=== PATIENT | male | born 1955 | race Caucasian/White ===

== ENCOUNTER → 2019-05-20 | Outpatient (CLI) | payer OTHER ==
[2015-04-04 10:57] VITALS: BP 124/78
[~2019-05-20] MED LIST: ASA/500T PO; ASPI-482 PO; ESOM10SU PO; ESOM40CA PO; LISI-338 PO; MIRA25TA PO; NAPR220C4 PO; OMEG1CAP6 PO; OMEG500C3 PO; POLY17PO29 PO; RANI300T PO; VIT1TABL2 PO
--- NOTE | 2019-05-20 11:47 | KCIC ---
LUMBAR SPINE WO CONTRAST Date: 05/20/2019 8:45 AM Indication: Chronic low back pain, right hip pain Comparison: None. Technique: Multi-planar multi-weighted magnetic resonance imaging of the lumbar spine was performed without intravenous contrast using the standard lumbar spine protocol. FINDINGS: Mild S-shaped lumbar curvature. No acute fracture. Advanced multilevel degenerative disc desiccation and disc height loss. Degenerative endplate edema at L5-S1. Scattered vertebral body hemangiomas. The conus terminates at a normal level. No abnormal signal is seen within the visualized distal spinal cord. Mild redundancy of the nerve roots of the cauda equina. No soft tissue abnormality in the visualized abdomen or pelvis. T12-L1: No disc bulge. No facet arthropathy. No significant spinal stenosis or neural foraminal narrowing. L1-L2: Disc bulge with annular tear. Mild facet arthropathy. Mild spinal stenosis and left lateral recess narrowing. Mild bilateral neural foraminal narrowing. L2-L3: Disc bulge with left far lateral protrusion. Moderate facet arthropathy. Ligamentum flavum thickening. Moderate spinal stenosis. Mild right and moderate to severe left lateral recess narrowing. Mild right and moderate to severe left neural foraminal narrowing. L3-L4: Disc bulge with right far lateral protrusion. Moderate to severe facet arthropathy. Ligamentum flavum thickening. Moderate to severe spinal stenosis. Severe right and moderate left lateral recess narrowing. Moderate to severe bilateral neural foraminal narrowing. L4-L5: Disc bulge with annular tear and right far lateral protrusion. Severe right and moderate left facet arthropathy. Ligament flavum thickening. Severe spinal stenosis and lateral recess narrowing. Severe right and moderate left neural foraminal narrowing. L5-S1: Disc bulge. Moderate facet arthropathy. No spinal stenosis. Mild lateral recess narrowing. Severe bilateral neural foraminal narrowing. IMPRESSION: Severe spinal stenosis at L4-5. Advanced degenerative changes at the remaining levels as detailed above. Electronically signed by: Manan Kee MD (05/20/2019 11:44 AM) [facility]
== END | disposition home or self-care (01) ==
LOC: KCIC MRI 08:26
PROVIDERS: ATTEND Orthopaedic Surgery
DX: M48.07 Spinal stenosis, lumbosacral region (principal); M51.36 Other intervertebral disc degeneration, lumbar region; M46.07 Spinal enthesopathy, lumbosacral region; M51.27 Other intervertebral disc displacement, lumbosacral region; M47.816 Spondylosis without myelopathy or radiculopathy, lumbar region; M41.86 Other forms of scoliosis, lumbar region; G89.29 Other chronic pain
CPT/HCPCS: 72148

== ENCOUNTER → 2019-08-06 | Outpatient (CLI) | payer MEDICARE ==
[2015-04-04 10:57] VITALS: BP 124/78
[~2019-08-06] MED LIST changes: +LISI10TA2 PO; +OMEG1CAP27 PO; +PRAV10TA2 PO
--- NOTE | 2019-08-06 09:46 | PAIN ---
DATE OF SERVICE: 08/06/2019 INITIAL CONSULTATION FOR PAIN CLINIC CHIEF COMPLAINT: Low back and right lower extremity pain. HISTORY OF PRESENT ILLNESS: This is a 64-year-old male, who presents with history of pain in the low back, right lower extremity for about 2 years. The patient reports it has been on and off over many years, but over the past 2 years, it has becoming more noticeable, and the patient thought it was his hip that was the main problem on his right side. He has seen orthopedic surgeon with full workup without any specific findings to explain the pain in his hip; however, MRI scan was done of the lumbar spine showing significant stenosis, especially at L4-L5 level with severe spinal stenosis and advanced degenerative changes at the L2-L3, L3-L4 and L4-L5 as well as some mild change in L5-S1. The patient shows right lateral protrusion at L3-L4 with [id number] facet arthropathy, mnadcpdp-uv-vnsbbm spinal stenosis as well at L2-L3 with the left lateral protrusion, L4-L5, showing severe right and moderate left facet arthropathy, severe spinal stenosis and lateral recess narrowing at L4-L5 with severe right and moderate left neural foraminal narrowing as well. The patient reports the pain is worse with walking, standing and changing positions, better with sitting or lying down, but does awaken him from sleep at night at least once or twice. The patient reports it does not affect his bowel or bladder control and does not affect his ability to walk significantly, but he has significant fatigue in the right leg with ambulation. The patient reports his disability rating from 0-10, 10 being the worst, is a 5 in all categories, family home responsibilities, social activity, recreation, occupation and sexual behavior, life support activities and self-care activities. The patient reports he has had some physical therapy in the past and has been doing some exercises with this as well, mainly stretching and strengthening exercises, also trying to walk daily and did have some trigger points in the past as well, which was helpful, as well as therapy, although not as helpful, currently with the stretching and strengthening exercises that he has been doing on his own. PAST MEDICAL HISTORY: Significant for hypertension, arthritis, left knee surgery in 1999 secondary to infection. CURRENT MEDICATIONS: Include lisinopril, fish oil, pravastatin, Tylenol and ibuprofen [id number], each of which does decrease the pain mildly, but only mildly. ALLERGIES: The patient has no known drug allergies. FAMILY HISTORY: Significant for no major medical problems or conditions that the patient is aware of. SOCIAL HISTORY: The patient does not drink alcohol, does not smoke and does not use any illegal, illicit or recreational drugs. He is , lives with his spouse, lives locally in [place], [place], and is retired by about 4 years ago from [employer]. REVIEW OF SYSTEMS: The patient's review of systems is positive for those items mentioned in the history of present illness. All systems reviewed and otherwise negative. It is complete, full and well documented on the patient's chart. PHYSICAL EXAMINATION: VITAL SIGNS: The patient's blood pressure is 131/81, pulse is 59, respirations 18, temperature is 98.2 degrees Fahrenheit. Height is 5 feet 9 inches and weight is 205 pounds. GENERAL: The patient is awake, alert, oriented, appropriate, very pleasant demeanor. HEENT: Head shows normocephalic, atraumatic. Extraocular movements are intact and symmetrical. Oral cavity: Mucous membranes moist and pink; dentition is intact. NECK: Shows anterior throat supple without palpable lymphadenopathy noted. Swallow reflex symmetrical. CHEST: Shows normal on inspection. Breath sounds are clear to auscultation bilaterally. HEART: Shows S1, S2 clear. No murmurs auscultated. ABDOMEN: Soft, nontender and nondistended. No palpable organomegaly is noted. No rebound or guarding demonstrated. BACK: Shows spine grossly in the midline. Normal-appearing thoracic kyphosis and minor flattening of lumbar lordotic curvature. Lumbar paraspinous muscle shows symmetrical on inspection, with palpation shows some moderate tenderness diffusely bilaterally, only diffusely without significant radiation. The patient shows good rotational motion of lumbar spine, both laterally as well as extension and flexion without difficulty. No tenderness over the spinous processes, sacrum or sacroiliac regions. EXTREMITIES: The patient's lower extremities show deep tendon reflexes at 1+ in the patellar and tendo-calcaneus tendons are equal. Motor exam is strong with 5/5 dorsiflexion on the left and 4/5 on the right as well as quadriceps and hamstring flexion 4/5 right and 5/5 left as well. Peripheral pulses are 1+ posterior tibial. No peripheral edema is noted bilaterally. The patient's straight leg raising noted to be mildly positive on the right at about 35-40 degrees with pain in the lateral thigh and posterior thigh, decreased with knee flexion, left side is negative. Gaenslen's and Jamison's maneuvers are grossly negative bilaterally as well. The patient is able to stand, stand on the toes without difficulty or loss of balance, walks with a slight shuffling gait, appears to favor the right lower extremity mildly, but is not using any assistive device such as canes or walkers to ambulate. SKIN: Shows warm and dry, good turgor. No edema. No sores, rashes or bruising throughout. IMPRESSION: 1. This is a 64-year-old male with long history of low back and right lower extremity pain in a radicular fashion, worse over the past few months following an L4-L5 dermatomal distribution on the right. 2. MRI scan of lumbar spine as noted. 3. Arthritis. 4. Hypertension. PLAN: Options were discussed with the patient including conservative medical managements, physical therapies and interventional techniques. He would like to pursue interventional techniques. We discussed the lumbar epidural steroid injection using description as well as anatomical models to describe the procedure. The patient will wait for preauthorization with his insurance provider. In the meantime, he will continue doing stretching and strengthening exercises on his own, maintain oral anti-inflammatories. As the patient had a Medrol steroid pack from his orthopedic surgeon recently, we will not repeat this currently, but he reported it did help significantly while he was taking it. We will have the patient return after preauthorization for a translaminar L4-L5 level lumbar epidural steroid injection. The patient will continue with stretching and strength exercises and walking as tolerated in the meantime. MARTHA CARVAJAL MD DR: MARLA/argelia JOB#: [id number] / [id number] GÉNESIS Cooney MD
== END ==
LOC: PNCL 07:58
PROVIDERS: ATTEND Anesthesiology
DX: M54.5 Low back pain (principal); M79.661 Pain in right lower leg; I10 Essential (primary) hypertension; Z87.39 Personal history of other diseases of the musculoskeletal system and connective tissue; Z98.890 Other specified postprocedural states
CPT/HCPCS: G0463

== ENCOUNTER → 2019-08-17 | Outpatient (CLI) | payer MEDICARE ==
[2015-04-04 10:57] VITALS: BP 124/78
[~2019-08-17] MED LIST changes: +IOHEXOL 180 MG/ML 10 ML VIAL. ONE; +methylPREDNISolone ACETATE 40 MG/ML VIAL. ONE; +methylPREDNISolone ACETATE 80 MG/ML VIAL. ONE
--- NOTE | 2019-08-17 12:14 | PAIN ---
DATE OF SERVICE: 08/17/2019 PROGRESS NOTE FOR PAIN CLINIC DIAGNOSES: Lumbar radiculopathy with lumbar degenerative disk disease, lumbar spinal stenosis. HISTORY OF PRESENT ILLNESS: The patient is a 64-year-old male who returns for followup status post initial evaluation and preauthorization for lumbar epidural steroid injection. The patient obtained that now and would like to proceed. The patient reports still pain in the low back, right lower extremity as it was, mostly in the posterior gluteus, lateral thigh, anterior thigh on the right, but also some on the left. The patient reports it is a 5 on a scale of 10 at all times over the past week, worst, least and average and is a 5 today. The patient reports it is aching and dull, tingling in the low back and the right greater than left lower extremity. The patient reports it is better with sitting or lying down, worse with walking, standing, changing positions, does not awaken him from sleep. The patient reports no new motor or sensory deficits, no new bowel or bladder incontinence or other complaints. PHYSICAL EXAMINATION: VITAL SIGNS: The patient's blood pressure 144/97, pulse 63, respirations 18, temperature 98.1 degrees Fahrenheit, height is 5 feet 7 inches, weight is 205 pounds. GENERAL: The patient is awake, alert, oriented, appropriate, very pleasant demeanor. HEENT: Shows normocephalic, atraumatic. Extraocular movements are intact and symmetrical. Oral cavity: Mucous membranes moist and pink. Dentition is intact. NECK: Shows anterior throat supple without palpable lymphadenopathy noted. Swallow reflex symmetrical. CHEST: Shows normal on inspection. Breath sounds are clear bilaterally. HEART: Shows S1, S2 clear. No murmurs auscultated. ABDOMEN: Soft, nontender, nondistended. BACK: Shows spine grossly in the midline, slight exaggerated thoracic kyphosis and minor flattening of lumbar lordotic curvature. Lumbar paraspinous muscle shows symmetrical on inspection, with palpation shows some moderate tenderness diffusely bilaterally going diffusely without significant radiation. EXTREMITIES: The patient's lower extremities show deep tendon reflexes at 1+ patellar and tendo calcaneus tendons. Motor exam is approximately 4 on a scale of 5 on the right with dorsiflexion and extension, 5/5 on the left. Peripheral pulses are 1+ posterior tibia. No peripheral edema is noted. Options were discussed with the patient. The patient's old chart was reviewed as his current medication regimen updated. Current review of systems updated today as well. We will proceed with a lumbar epidural steroid injection today with fluoroscopic guidance. Risks were again discussed including, but not limited to bleeding, infection, possibility of epidural hematoma, subsequent neurological compromise, dural puncture, headaches, spinal cord and/or nerve damage, side effects of steroid medication and poor results regarding pain control. The patient understands and wished to proceed. The patient will return to clinic in approximately 2 weeks for followup. He was counseled as to return appointment, activity level and side effects to be aware of. DIAGNOSES: Lumbar radiculopathy with lumbar degenerative disk disease, lumbar spinal stenosis. PROCEDURE: Lumbar epidural steroid injection, translaminar approach at L5-S1 level using C-arm fluoroscopic guidance under sterile prep and drape using local anesthetic. MEDICATION INJECTED: A total of 120 mg Depo-Medrol plus 10 mL of preservative normal saline and 2 mL of contrast. CONDITION AT DISCHARGE: Stable. The patient tolerated the procedure well, had no complications. MARTHA CARVAJAL MD DR: MARLA/argelia JOB#: [id number] / [id number]
== END ==
LOC: PNCL 10:23
PROVIDERS: ATTEND Anesthesiology
DX: M51.16 Intervertebral disc disorders with radiculopathy, lumbar region (principal); M48.061 Spinal stenosis, lumbar region without neurogenic claudication
CPT/HCPCS: 62323; J1030; J1040; Q9965

== ENCOUNTER → 2019-08-31 | Outpatient (CLI) | payer MEDICARE ==
[2015-04-04 10:57] VITALS: BP 124/78
[~2019-08-31] MED LIST changes: -IOHEXOL 180 MG/ML 10 ML VIAL. ONE; -methylPREDNISolone ACETATE 40 MG/ML VIAL. ONE; -methylPREDNISolone ACETATE 80 MG/ML VIAL. ONE
--- NOTE | 2019-08-31 10:00 | PAIN ---
DATE OF SERVICE: 08/31/2019 PROGRESS NOTE FOR PAIN CLINIC DIAGNOSES: Lumbar radiculopathy with lumbar degenerative disk disease and lumbar spinal stenosis. HISTORY OF PRESENT ILLNESS: The patient is a 64-year-old male who returns for followup status post lumbar epidural steroid injection x 1. The patient reports about 90% improvement in his low back and right lower extremity. The patient reports doing much better with distance walking, doing work activities, household activities, taking care of his property and home. The patient reports his pain is a 1 on a scale of 10 at its worst, average and least is a 1 today. The patient reports it is aching, sharp, much worse in the morning, but once he gets up and around, he does quite a bit better, still radiating to the right lower extremity, posterior gluteus, posterior thigh, posterior calf, but only very infrequently and the patient reports that over time, it is beginning to return very slightly. He is noticing that it is following the radicular pattern once again. The patient reports it is better at night, not awaken him from sleep at night. No new motor or sensory deficits, no new bowel or bladder incontinence. Describes an aching pain in the low back and right leg. PHYSICAL EXAMINATION: VITAL SIGNS: The patient's blood pressure is 132/77, pulse 62, respirations 18, temperature 98.1 degrees Fahrenheit, height is 5 feet 9 inches, and weight is 199 pounds. GENERAL: The patient is awake, alert, oriented, appropriate, very pleasant demeanor. HEENT: Head shows normocephalic, atraumatic. Extraocular movements are intact and symmetrical. Oral Cavity: Mucous membranes moist and pink. Dentition is intact. NECK: Shows anterior throat is supple without palpable lymphadenopathy noted. Swallow reflex symmetrical. CHEST: Shows normal on inspection. Breath sounds clear to auscultation bilaterally. HEART: Shows S1, S2 clear. No murmurs auscultated. ABDOMEN: Soft, nontender, nondistended. No palpable organomegaly is noted. No rebound or guarding demonstrated. BACK: Shows spine grossly in the midline. Normal-appearing thoracic kyphosis and lumbar lordotic curvature slightly flattened. Lumbar paraspinous muscle shows symmetrical on inspection, on palpation shows some moderate tenderness diffusely bilaterally, but only diffusely without significant radiation. The patient has good rotational motion of lumbar spine, both laterally as well as extension and flexion without significant difficulty or pain reported. EXTREMITIES: The patient's lower extremities show deep tendon reflexes at 1+ in the patellar and tendo calcaneus tendons. Motor exam is approximately 4 on a scale of 5 on the right and 5/5 on the left. Peripheral pulses are 1+ posterior tibia. No peripheral edema is noted. The patient does have a very mild straight leg raise which is positive on the right side at about 45 degrees, but decreased completely with knee flexion. Left side is negative. Gaenslen's and Jamison maneuvers are negative bilaterally. Options were discussed with the patient. The patient's old chart was reviewed as his current medication regimen updated. Current review of systems updated today as well. We will proceed with a preauthorization for a second lumbar epidural steroid injection. The patient is doing much better after the first pain returning now in a radicular pattern at L5-S1 dermatomal distribution on the right, but again it got 90% better after the first injection. The patient will continue with stretching and strengthening exercises, activity as tolerated, walking daily and taking care of his property, which is very physical by his report. We will wait for preauthorization and have the patient return for a second lumbar epidural steroid injection at L5-S1 level, translaminar approach at that time. MARTHA CARVAJAL MD DR: MARLA/argelia JOB#: [id number] / [id number]
== END ==
LOC: PNCL 08:28
PROVIDERS: ATTEND Anesthesiology
DX: M51.16 Intervertebral disc disorders with radiculopathy, lumbar region (principal); M48.061 Spinal stenosis, lumbar region without neurogenic claudication
CPT/HCPCS: G0463

== ENCOUNTER → 2019-10-21 | Outpatient (CLI) | payer MEDICARE ==
[2015-04-04 10:57] VITALS: BP 124/78
[~2019-10-21] MED LIST changes: +IOHEXOL 180 MG/ML 10 ML VIAL. ONE; +methylPREDNISolone ACETATE 40 MG/ML VIAL. ONE; +methylPREDNISolone ACETATE 80 MG/ML VIAL. ONE
--- NOTE | 2019-10-21 10:02 | PAIN ---
DATE OF SERVICE: 10/21/2019 PROGRESS NOTE FOR PAIN CLINIC DIAGNOSES: Lumbar radiculopathy with lumbar degenerative disk disease, lumbar spinal stenosis. HISTORY OF PRESENT ILLNESS: The patient is a 64-year-old male who returns for followup status post lumbar epidural steroid injection x 1. The patient reports about 90% improvement for several weeks after the injection. The patient reports the pain is returning now just over the past couple of days in the low back and right lower extremity, posterior gluteus, posterior thigh, posterior calf into the foot, again he was increasing his activity with greater distance walking, doing work activities, household activities with much greater ease and comfort. The patient reports he is sleeping much better at night, has been beginning to awaken him from sleep about once at night now in the past few days. The patient reports otherwise doing very well. Describes the pain in his low back is sharp and aching, shooting in the right lower extremity with some tingling sensation in the leg and foot as well. The patient reports his pain is 7 on a scale of 10 at its worst over the past week, 6 on average, 2 at its least and is a 6 today. The patient reports no new motor or sensory deficits, no new bowel or bladder incontinence or other complaints. PHYSICAL EXAMINATION: VITAL SIGNS: The patient's blood pressure 124/89, pulse 63, respirations 16, temperature 98.4 degrees Fahrenheit, height is 5 feet 9 inches, weight is 198 pounds. GENERAL: The patient is awake, alert, oriented, appropriate, very pleasant demeanor. HEENT: Head shows normocephalic, atraumatic. Extraocular movements are intact and symmetrical. Oral cavity: Mucous membranes moist and pink. Dentition is intact. NECK: Shows anterior throat supple without palpable lymphadenopathy noted. Swallow reflex symmetrical. CHEST: Shows normal on inspection. Breath sounds are clear bilaterally. HEART: Shows S1, S2 clear. No murmurs auscultated. ABDOMEN: Soft, nontender, nondistended. No palpable organomegaly is noted. No rebound or guarding demonstrated. BACK: Shows spine grossly in the midline. Normal appearing thoracic kyphosis, some minor flattening of lumbar lordotic curvature. Lumbar paraspinous muscle shows symmetrical on inspection, on palpation shows some moderate tenderness diffusely without significant radiation demonstrated. EXTREMITIES: The patient's lower extremities show deep tendon reflexes at 1+ in the patellar and tendo calcaneus tendons. Motor exam is approximately 4 on a scale of 5 on the right with dorsiflexion and extension, 5/5 on the left. Peripheral pulses are 1+ posterior tibia. No peripheral edema is noted. Options were discussed with the patient. The patient's old chart was reviewed as his current medication regimen updated. Current review of systems updated today as well. We will proceed with a second in the series of lumbar epidural steroid injection today with fluoroscopic guidance. Risks were again discussed including, but not limited to bleeding, infection, possibility of epidural hematoma, subsequent neurological compromise, dural puncture, headaches, spinal cord and/or nerve damage, side effects of steroid medication and poor results regarding pain control. The patient understands and wished to proceed. The patient will return to clinic in approximately 2 weeks for followup, was counseled on return appointment, activity level and side effects to be aware of. DIAGNOSES: Lumbar radiculopathy with lumbar degenerative disk disease, lumbar spinal stenosis. PROCEDURE: Lumbar epidural steroid injection, translaminar approach at the L5-S1 level using C-arm fluoroscopic guidance under sterile prep and drape using local anesthetic. MEDICATION INJECTED: A total of 120 mg Depo-Medrol plus 10 mL of preservative-free normal saline and 2 mL of Isovue for contrast. CONDITION ON DISCHARGE: Stable. The patient tolerated the procedure well and had no complications. MARTHA CARVAJAL MD DR: MARLA/argelia JOB#: [id number] / [id number]
== END ==
LOC: PNCL 08:48
PROVIDERS: ATTEND Anesthesiology
DX: M51.16 Intervertebral disc disorders with radiculopathy, lumbar region (principal); M48.061 Spinal stenosis, lumbar region without neurogenic claudication
CPT/HCPCS: 62323; J1030; J1040; Q9965

== ENCOUNTER → 2019-11-23 | Outpatient (CLI) | payer MEDICARE ==
[2015-04-04 10:57] VITALS: BP 124/78
[~2019-11-23] MED LIST changes: +DICL75TA PO; -IOHEXOL 180 MG/ML 10 ML VIAL. ONE; -methylPREDNISolone ACETATE 40 MG/ML VIAL. ONE; -methylPREDNISolone ACETATE 80 MG/ML VIAL. ONE
== END | disposition home or self-care (01) ==
LOC: LAB 13:41
PROVIDERS: ATTEND Internal Medicine Gastroenterology
DX: Z11.59 Encounter for screening for other viral diseases (principal)
CPT/HCPCS: U0003-CS

== ENCOUNTER → 2019-11-27 | Day surgery (SDC) | payer MEDICARE ==
[~2019-11-27] MED LIST changes: +IV RINGERS,LACTATED 1000ML 1,000 ML IV SCH; +LIDOCAINE 2% PF 5 ML VIAL. ONE; +PROPOFOL 10 MG/ML (20ML) VIAL. IV ONE
--- NOTE | 2019-11-27 09:32 | HP ---
ADMIT DATE: 11/27/2019 REFERRING PHYSICIAN: Kai Porter MD HISTORY OF PRESENT ILLNESS: A 64-year-old male with past medical history significant for osteoarthrosis, hypertension, hyperlipidemia, seen for interval colonoscopy, has had polyps in the past. Recently has had some bleeding with straining and some constipation. Family history is negative for colon cancer. Weight and appetite are stable. He is otherwise without additional complaints. PAST MEDICAL HISTORY: Osteoarthrosis, hypertension, hyperlipidemia, history of colonic polyps. ALLERGIES: None. MEDICATIONS: Include diclofenac, lisinopril, omega-3 and pravastatin. FAMILY AND SOCIAL HISTORY: He is a former drinker, nonsmoker. PAST SURGICAL HISTORY: Status post tonsillectomy and vasectomy, prostate surgery. REVIEW OF SYSTEMS: Per records. PHYSICAL EXAMINATION: GENERAL: Reveals a well-nourished, well-developed male who is alert, cooperative, in no acute distress. VITAL SIGNS: Temperature 98.1, pulse 60, respirations 20. LUNGS: Clear. CARDIOVASCULAR: Reveals an S1, S2 without S3, S4 or appreciable murmur. ABDOMEN: Soft abdomen, normal bowel sounds without appreciable hepatosplenomegaly. IMPRESSION: History of colonic polyps and rectal bleeding, etiology to be determined. Differential includes colonic polyps, malignancy, inflammatory bowel disease, fissures, hemorrhoids and/or diverticular disease. Therefore, recommend colonoscopy. Risks and benefits of procedure including risks of hemorrhage and perforation were discussed. The patient is willing to proceed at this time. BENOIT ANNA MD DR: TIM/argelia JOB#: [id number] / [id number]
[2019-11-27 09:39] VITALS: BP 116/64
== END | disposition home or self-care (01) ==
LOC: ENDOS 06:46
PROVIDERS: ATTEND Internal Medicine Gastroenterology
DX: K62.5 Hemorrhage of anus and rectum (principal); K57.30 Diverticulosis of large intestine without perforation or abscess without bleeding; K64.0 First degree hemorrhoids; I10 Essential (primary) hypertension; E78.5 Hyperlipidemia, unspecified; Z86.010 Personal history of colon polyps; Z98.52 Vasectomy status
CPT/HCPCS: 45378; J2704; J3490

== ENCOUNTER → 2021-05-26 | Outpatient (CLI) | payer OTHER ==
[2019-11-27 09:39] VITALS: BP 116/64
[~2021-05-26] MED LIST changes: -IV RINGERS,LACTATED 1000ML 1,000 ML IV SCH; -LIDOCAINE 2% PF 5 ML VIAL. ONE; -LISI-338 PO; +LISI10TA16 PO; -LISI10TA2 PO; +LISI5TAB15 PO; -PROPOFOL 10 MG/ML (20ML) VIAL. IV ONE
--- NOTE | 2021-05-26 13:14 | KCIC ---
EXAM: CT CORONARY CALCIUM SCORING. HISTORY: Hyperlipidemia. Coronary calcium scoring. COMPARISON: None. FINDINGS: Limited noncontrast CT of the chest was performed for coronary calcium scoring. Refer to e worksheets for full detail Coronary calcium scoring is as follows: RCA: 0. LM: 0. LAD: 0.9. LCx: 21.6. Total (not including aorta and other): 22.5. The included portions of the chest reveal the following. Bone windows reveal no suspicious lesions. I mages of the upper abdomen reveal no acute abnormality. There are no pathologically enlarged mediastinal lymph nodes. Calcified subcarinal and hilar lymph no donna. There is no pleural or pericardial effusion. The heart is not enlarged. There is a 5 mm calcified granuloma in the left lower lobe. No focal airspace consolidation. IMPRESSION: 1. Coronary calcium score 22.5. Implication: Definite, at least mild atherosclerotic plaque. Risk of Coronary Artery Disease: Mild or minimal coronary narrowings likely. --- Exposure: One or more of the following individualized dose reduction techniques were utilized for thi s examination: 1. Automated exposure control 2. Adjustment of the mA and/or kV according to patient size 3. Use of iterative reconstruction technique. Electronically signed by: Erasmo Lopez MD (05/26/2021 1:11 PM) [facility]
== END ==
LOC: KCIC 10:57
PROVIDERS: ATTEND Family Medicine
DX: I25.10 Atherosclerotic heart disease of native coronary artery without angina pectoris (principal); J84.10 Pulmonary fibrosis, unspecified; I89.8 Other specified noninfective disorders of lymphatic vessels and lymph nodes; E78.5 Hyperlipidemia, unspecified
CPT/HCPCS: 75571